=== PATIENT | female | born 1930 | race Caucasian/White ===

== ENCOUNTER 2016-09-06 14:07 | Emergency (ER) | payer MEDICARE, OTHER ==
--- NOTE | 2016-09-06 15:40 | UC ---
Shoulder Pain HPI - HPI Summary HPI Summary: fell one week ago--foosh injury pain in right upper arm and wrist, seems ok but gets worse as the day progresses - History of Current Complaint Chief Complaint: UCUpperExtremity Stated Complaint: S/P FALL RIGHT SHOULDER PAIN Time Seen by Provider: 09/06/16 15:06 Hx Obtained From: Patient ?: No Onset/Duration: Sudden Onset, Lasting Weeks - 1, Still Present Timing: Constant Severity Initially: Mild Severity Currently: Mild Location Of Pain: Is Discrete @ - right upper arm and wrist Character: Aching Aggravating Factor(s): Movement Alleviating Factor(s): Rest, Ice Associated Signs And Symptoms: Positive: Negative Related History: Dominant Hand Right - Allergies/Home Medications Allergies/Adverse Reactions: Allergies Allergy/AdvReac Type Severity Reaction Status Date / Time Cephalexin [From Keflex] Allergy gi Verified 09/06/16 14:54 Morphine Allergy Hallucinati Verified 09/06/16 14:54 ons Home Medications: Home Medications Alendronate Sodium [Fosamax-] 70 mg PO Q7D 09/06/16 [History Confirmed 09/06/16] Allopurinol TAB* [Zyloprim 100 MG TAB*] 100 mg PO DAILY 09/06/16 [History Confirmed 09/06/16] Clopidogrel TAB* [Plavix TAB*] 75 mg PO DAILY 09/06/16 [History Confirmed ] Ferrous Sulfate TAB* 325 mg PO TID 09/06/16 [History Confirmed 09/06/16] Furosemide TAB* [Lasix TAB*] 40 mg PO DAILY 09/06/16 [History Confirmed 09/06/16 ] Gabapentin CAP(*) [Neurontin 300 CAP(*)] 300 mg PO BEDTIME 09/06/16 [History Confirmed 09/06/16] Losartan Potassium 100 mg PO DAILY 09/06/16 [History Confirmed 09/06/16] Ranitidine TAB (NF) [Zantac TAB (NF)] 150 mg PO BID 09/06/16 [History Confirmed 09/06/16] Simvastatin TAB(NF) [Zocor(NF)] 20 mg PO 1700 09/06/16 [History Confirmed ] Terazosin CAP* [Hytrin CAP*] 2 mg PO BEDTIME 09/06/16 [History Confirmed ] amLODIPine TAB* [Norvasc 5 mg TAB*] 10 mg PO DAILY 09/06/16 [History Confirmed 09/06/16] PMH/Surg Hx/FS Hx/Imm Hx Previously Healthy: No Cardiovascular History Of: Reports: Cardiac Disorders - stent placed, Hypertension - Surgical History Surgical History: Yes Surgery Procedure, Year, and Place: cardiac stent 2003. appendix. hysterectomy. rectal cancer - Family History Known Family History: Positive: None Family History: no reported cardiovascular issues in family lineage - Social History Occupation: Retired Lives: With Family Alcohol Use: Occasionally Substance Use Type: None Smoking Status (MU): Former Smoker When Did the Patient Quit Smoking/Using Tobacco: unknown - Immunization History Most Recent Influenza Vaccination: [id number] Most Recent Pneumonia Vaccination: 06/2015 Review of Systems Constitutional: Negative Skin: Negative Eyes: Negative ENT: Negative Respiratory: Negative Cardiovascular: Negative Gastrointestinal: Negative Genitourinary: Negative Motor: Negative Neurovascular: Negative Musculoskeletal: Arthralgia - right wrist and upper arm Neurological: Negative Psychological: Negative All Other Systems Reviewed And Are Negative: Yes Physical Exam Triage Information Reviewed: Yes Appearance: Well-Appearing, No Pain Distress, Well-Nourished Vital Signs: Initial Vital Signs Temp 98.9 F 09/06/16 14:50 Pulse 74 09/06/16 14:50 Resp 16 09/06/16 14:50 BP 156/44 09/06/16 14:50 Pulse Ox 100 09/06/16 14:50 Vital Signs Reviewed: Yes Eye Exam: Normal Eyes: Positive: Conjunctiva Clear ENT Exam: Normal ENT: Positive: Normal ENT inspection, Hearing grossly normal, TMs normal. Negative: Nasal congestion, Nasal drainage, Trismus, Muffled/hoarse voice Dental Exam: Normal Neck exam: Normal Neck: Positive: Supple, Nontender Respiratory Exam: Normal Respiratory: Positive: Chest non-tender, Lungs clear, Normal breath sounds, No respiratory distress, No accessory muscle use Cardiovascular Exam: Normal Cardiovascular: Positive: RRR, No Murmur, Pulses Normal, Brisk Capillary Refill Musculoskeletal Exam: Normal Musculoskeletal: Positive: Strength Intact, No Edema, ROM Limited @ - right shoulder Neurological Exam: Normal Neurological: Positive: Alert, Muscle Tone Normal Psychological Exam: Normal Skin Exam: Normal Diagnostics - Laboratory Diagnostic Studies Completed/Ordered: no evidence of acute injury Shoulder Course/Dx - Course Assessment/Plan: ice tylenol, gentle exercise, follow with Md if not resolved in 3-5 days - Differential Dx/Diagnosis Differential Diagnosis/HQI/PQRI: Bursitis, Contusion, Rotator Cuff Injury, Sprain, Strain Provider Diagnoses: Right upper arm and wrist contusion, hypertension with diagnosis of HTN Discharge - Discharge Plan Condition: Stable Disposition: HOME Patient Education Materials: Acetaminophen (By mouth), Chronic Hypertension (ED ), Contusion in Adults (ED), Ice Pack Application (ED) Referrals: [facility] [Provider Group] - 5 Days Non Staff,Doctor [Primary Care Provider] -
--- NOTE | 2016-09-06 15:57 | RAD ---
HISTORY: Right upper arm pain and trauma COMPARISONS: None VIEWS: 3, Frontal internal rotation and external rotation views of the right humerus FINDINGS: BONE DENSITY: There is diffuse osteopenia. BONES: There is no displaced fracture. JOINTS: There is no arthropathy. ALIGNMENT: There is no dislocation. SOFT TISSUES: Unremarkable. OTHER FINDINGS: None. IMPRESSION: NO ACUTE OSSEOUS INJURY. IF SYMPTOMS PERSIST, RECOMMEND REPEAT IMAGING.
--- NOTE | 2016-09-06 15:58 | RAD ---
HISTORY: Right wrist pain and trauma COMPARISONS: None VIEWS: 3, Frontal, lateral, and oblique views of the right wrist FINDINGS: BONE DENSITY: There is diffuse osteopenia. BONES: There is no displaced fracture. JOINTS: There is osteoarthritis of the radiocarpal, first CMC, and first MCP articulations. There is chondrocalcinosis. ALIGNMENT: There is no dislocation. SOFT TISSUES: Unremarkable. OTHER FINDINGS: None. IMPRESSION: 1. OSTEOPENIA. 2. OSTEOARTHRITIS. 3. CHONDROCALCINOSIS. 4. NO ACUTE OSSEOUS INJURY. IF SYMPTOMS PERSIST, RECOMMEND REPEAT IMAGING
[2016-09-06 16:24] VITALS: BP 154/64
== END 2016-09-06 16:23 | disposition home or self-care (01) ==
LOC: UCCORT 14:07
DX: S40.021A Contusion of right upper arm, initial encounter (principal); S60.211A Contusion of right wrist, initial encounter; W19.XXXA Unspecified fall, initial encounter; Y93.9 Activity, unspecified; Y92.9 Unspecified place or not applicable; R03.0 Elevated blood-pressure reading, without diagnosis of hypertension; Z88.1 Allergy status to other antibiotic agents; Z88.5 Allergy status to narcotic agent; I10 Essential (primary) hypertension; I51.89 Other ill-defined heart diseases; Z95.5 Presence of coronary angioplasty implant and graft; Z87.891 Personal history of nicotine dependence
CPT/HCPCS: 99212; G0463